=== PATIENT | male | born 1995 | race Caucasian/White ===

== ENCOUNTER 2018-10-17 11:30 | Emergency (ER) | payer SELFPAY ==
[~2018-10-17] VITALS: Ht 167.6 cm; Wt 75.2 kg
[2018-10-17 11:46] VITALS: BP 110/66; PULSE 74; RESP 20; Ht 167.6 cm; Wt 75.2 kg
[2018-10-17] MEDS ORDERED: KETOROLAC 60 MG INJ IM STA (14:10)
[2018-10-17] MEDS ORDERED: ACETAMINOPHEN 500 MG TAB PO STA (14:10)
[2018-10-17] MEDS ORDERED: CYCLOBENZAPRINE 10 MG TAB PO ONE (14:30)
[2018-10-17] MEDS ORDERED: NAPR-985 PO (15:04)
[2018-10-17] MEDS ORDERED: CYCL10TA7 PO (15:04)
[2018-10-17] MEDS ORDERED: TRAM50TA2 PO (15:04)
[2018-10-17] MEDS ORDERED: ACET500C5 PO (15:04)
--- NOTE | 2018-10-19 23:20 | ERD ---
ER Documentation Chief Complaint Chief Complaint Complains of a slip and fall on wet surface at his job HPI 23 year-old male coming in today with Chief Complaint: Fall History of Present Illness: Patient reporting mechanical fall while at work today, reports slipping on a wet surface and falling and hitting buttocks. Patient describing pain as soreness, gradual onset, 5 out of 10. associated symptoms include lower back pain. Denies weakness, tingling, paralysis, decreased sensation. Denies any other associated symptoms. Denies at home use of medications for symptoms. Review of systems: All systems were reviewed and are negative except for what is indicated in the history of present illness. Past Medical History: Negative for hypertension, diabetes or other medical problems Social History: Patient denies tobacco, alcohol, elicit drug use Medications: None Allergies: NKDA Social Concerns: Denies ROS All systems reviewed and are negative except as per history of present illness. Medications Home Meds Active Scripts Acetaminophen* (Tylophen*) 500 Mg Capsule, 2 CAP PO Q6 PRN for PAIN AND OR ELEVATED TEMP, #20 CAP Prov:GERALD LION [employer] 10/17/18 Tramadol HCl (Tramadol HCl) 50 Mg Tablet, 50 MG PO Q8 PRN for PAIN, #6 TAB Prov:GERALD LION [employer] 10/17/18 Cyclobenzaprine Hcl* (Cyclobenzaprine Hcl*) 10 Mg Tablet, 10 MG PO TID for muscle spasm/tight muscles, #15 TAB Prov:GERALD LION [employer] 10/17/18 Naproxen* (Naprosyn*) 500 Mg Tablet, 500 MG PO BID PRN for PAIN AND/OR INFLAMMATION, #30 TAB Prov:GERALD LION [employer] 10/17/18 Allergies Allergies: Coded Allergies: No Known Allergy (Unverified , 10/17/18) PMhx/Soc Medical and Surgical Hx: pt denies Medical Hx, pt denies Surgical Hx Hx Alcohol Use: No Hx Substance Use: No Hx Tobacco Use: No Smoking Status: Never smoker FmHx Family History: No diabetes, No coronary disease Physical Exam Vitals Vital Signs Date Temp Pulse Resp B/P (MAP) Pulse Ox O2 O2 Flow FiO2 Time Delivery Rate 10/17/18 98.6 74 20 110/66 98 11:46 (81) Physical Exam Const: No acute distress Head: Atraumatic Eyes: Normal Conjunctiva ENT: Normal External Ears, Nose and Mouth. Neck: Full range of motion. No meningismus. Resp: Clear to auscultation bilaterally Cardio: Regular rate and rhythm, no murmurs Abd: Soft, non tender, non distended. Normal bowel sounds Skin: No petechiae or rashes Back: No midline or flank tenderness. Paraspinal tenderness to lumbar region of back. Tender to palpation to muscular skeletal of lumbar region of back. Ext: No cyanosis, or edema Neur: Awake and alert. Neuro exam unremarkable. Cranial nerves intact. Psych: Normal Mood and Affect Results 24 hrs Current Medications Medications Dose Sig/Mian Start Time Status Last (Trade) Ordered Route PRN Stop Time Admin Dose Reason Admin Ketorolac 60 mg ONCE STAT 10/17/18 DC 10/17/18 Tromethamine IM 14:10 10/17/18 14:19 (Toradol) 14:12 1,000 mg ONCE STAT 10/17/18 DC 10/17/18 Acetaminophen PO 14:10 10/17/18 14:19 (Tylenol 14:12 Tab) 10 mg ONCE ONCE 10/17/18 DC 10/17/18 Cyclobenzapri PO 14:30 10/17/18 14:19 ne HCl 14:31 (Flexeril) Procedures/MDM ED course includes a thorough examination and history. ED course includes medications; Toradol for anti-inflammatory, acetaminophen for pain, cyclobenzaprine for muscle spasm. Low suspicion for life-threatening medical emergency, orthopedic emergency, neurologic emergency. Otherwise healthy patient presenting with constellation of symptoms likely representing uncomplicated lumbar muscle pain secondary to fall as characterized by history, physical exam findings. No respiratory distress, otherwise relatively well appearing and nontoxic. Ambulating without difficulty. Patient educated on diagnoses, prescriptions [tramadol, Naprosyn, acetaminophen, cyclobenzaprine], follow-up care, return precautions. Strict return precautions given for worsening condition; questions answered discharge. Patient also given education on using a heating pad and ice packs Disposition for discharge with followup in 2-3 days with PCP/clinic for reevaluation of symptoms. Departure Diagnosis: Primary Impression: Lumbar muscle pain Additional Impression: Fall from slipping on wet surface Condition: Stable Patient Instructions: Back Pain (Acute Or Chronic), Contusion, Back, Fall, Mechanical, R.I.C.E. Additional Instructions: Call your primary care doctor TOMORROW for an appointment during the next 2-3 days.See the doctor sooner or return here if your condition worsens before your appointment time. Your pain will likely increase tomorrow before it starts to improve over the next 2-3 days. Take the Naprosyn as prescribed daily for the next week. Take the tramadol for moderate severe pain, pain level 6-10. Take acetaminophen for mild to moderate pain, as prescribed. Cyclobenzaprine will help with muscle spasms and muscle pain, Take as prescribed. Use ice pack for the next 3 days 4-5 times daily. Then start alternating heat packs and ice packs after 3 days. GERALD LION NP Oct 19, 2018 23:20
== END 2018-10-17 15:15 | disposition home or self-care (01) ==
LOC: FTE 11:30 → E/R 15:15
DX: M54.5 Low back pain (principal)
CPT/HCPCS: 96372; 99284; J1885